=== PATIENT | male | born 1975 | race Caucasian/White ===

== ENCOUNTER → 2019-03-04 15:27 | Outpatient (CLI) | payer OTHER, SELFPAY ==
--- NOTE | 2019-03-04 | DI.CT.S_ITS ---
PROCEDURE: CT SINUS SCREEN WO CON INDICATIONS: Anosmia TECHNIQUE: Noncontrast 3.0 mm axial images acquired from the frontal sinuses to the mid-sella, with coronal and sagittal reformats. For radiation dose reduction, the following was used: automated exposure control, adjustment of mA and/or kV according to patient size. COMPARISON: None. FINDINGS: Image quality: Excellent. Maxillary Sinuses: No bony remodeling or destruction. Mild mucosal thickening and small mucous retention cyst in the right maxillary sinus. Ethmoid Air Cells: No bony remodeling or destruction. Sinuses are clear. Sphenoid Sinuses: No bony remodeling or destruction. Sinuses are clear. Frontal Sinuses: No bony remodeling or destruction. Sinuses are clear. Ostiomeatal Complexes: Ostiomeatal complexes are patent. No Sarbjit cells. Miscellaneous: Visualized intra-orbital contents are normal. No angie bullosa or paradoxical turbinate curvature. There is rightward nasal septal deviation. IMPRESSION: 1. Mild right maxillary sinusitis. 2. Right-cosme nasal septum deviation. Dictated by: Glo Sung M.D. on 03/04/2019 at 16:08 Approved by: Glo Sung M.D. on 03/04/2019 at 16:12
== END ==
PROVIDERS: Family Provider Family Medicine; PCP Family Medicine; Visit Provider Family Medicine
DX: J32.0 Chronic maxillary sinusitis (principal); J34.2 Deviated nasal septum; R43.0 Anosmia
CPT/HCPCS: 70486